=== PATIENT | male | born 1965 | race Caucasian/White ===

== ENCOUNTER 2021-06-02 00:48 | Emergency (ER) | payer OTHER ==
[~2021-06-02] VITALS: Ht 180.3 cm; Wt 103.7 kg
[2021-06-02] MEDS ORDERED: IV NORMAL SALINE 1000ML BAG 1,000 ML IV ONE (01:00)
--- NOTE | 2021-06-02 01:04 | PHYS DOC ---
General Adult EDM: Chief Complaint: MECHANICAL FALL HPI: HPI: Patient is a 55 year-old male presents via EMS for evaluation after a fall. Patient admits to heavy drinking tonight. Patient states he smokes cigarettes for the first time in several weeks. Patient states while he was smoking he became dizzy and had an apparent syncopal episode. Patient had no forward and hit his head on the ground. Patient has abrasion forehead bridge of his nose and right shoulder. Patient also only complains of right head pain. He is alert and oriented x4. He denies any chest pain or shortness of breath. Patient states his tetanus is up-to-date. Review of Systems: Review of Systems: Review of systems: Constitutional symptoms- No fever, no chills. Eyes- No Discharge, No Visual Loss Respiratory symptoms- No shortness of breath, No wheezing, No Dyspnea on Exertion Cardiovascular Systems; No chest pain, No Palpitations, No syncope Gastrointestinal symptoms: NO abdominal pain, no nausea, no vomiting or diarrhea. Genitourinary symptoms: No dysuria. Musculoskeletal symptoms: No back pain No extremity pain. NEUROLOGICAL Symptoms: No headache, no generalized weakness; No focal Weakness Skin: No rash. Heart Score: C/O Chest Pain: N/A Risk Factors: Risk Factors: DM, Current or recent (<one month) smoker, HTN, HLP, family history of CAD, obesity. Risk Scores: Score 0 - 3: 2.5% MACE over next 6 weeks - Discharge Home Score 4 - 6: 20.3% MACE over next 6 weeks - Admit for Clinical Observation Score 7 - 10: 72.7% MACE over next 6 weeks - Early Invasive Strategies Current Medications: Current Medications Medications (Trade) Dose Ordered Sig/Alex Start Time Stop Time Status Last Admin Dose Admin Sodium Chloride 1,000 ml @ 1,000 mls/hr 1X ONCE 06/02/21 01:00 06/02/21 01:59 Allergies: Allergies: Allergies Coded Allergies Type Severity Reaction Last Updated Verified No Known Drug Allergies 06/02/21 No Physical Exam: PE: General: alert, no acute distress. Skin: Duration forehead abrasion bridge of nose abrasion above upper lip abrasion right shoulder HENT: bilateral external ears normal, oropharynx moist, nose normal. Head:: Normocephalic, atraumatic. Neck: Trachea midline. Eyes: EOMI, Normal conjunctiva, No drainage CARDIOVASCULAR: Regular rate and rhythm RESPIRATORY: No respiratory distress Back: Full range of motion. MUSCULOSKELETAL: Full range of motion of bilateral upper and lower extremities. GASTROINTESTINAL: Abdomen soft without rebound or guarding. NEUROLOGICAL: Alert and noted to person, place and time. No neurological deficits observed Psychiatric: Cooperative. Normal judgment EKG: EKG: [] Performed at 0136 Rate 72 Normal sinus rhythm No ST elevation No ST depression No acute PA Radiology/Procedures: Radiology/Procedures: [] Impression: IMPRESSION: CT HEAD/FACIAL BONES: 1.No evidence of acute intracranial abnormality. 2.Forehead contusion/hematoma, right greater than left. No evidence of underlying calvarial fracture. 3. No evidence of facial bone fracture CT CERVICAL SPINE: No evidence of fracture or traumatic spondylolisthesis of the cervical spine. Course & Med Decision Making: Course & Med Decision Making Pertinent Labs and Imaging studies reviewed. (See chart for details) [] Patient was evaluated for chief complaint. Work-up consisted of laboratory analysis and radiologic imaging. CT imaging showed no acute intracranial abnormalities or acute fractures. Patient was treated with IV fluids. He was observed to sobriety. Patient ambulated with a steady gait. Patient was discharged home. [place] Disclaimer: Jayson Disclaimer: This electronic medical record was generated, in whole or in part, using a voice recognition dictation system. Departure Departure Impression: Primary Impression: Facial abrasion Additional Impressions: Alcohol intoxication Facial contusion Disposition: HOME / SELF CARE / HOMELESS Condition: STABLE CHARLINE VERGARA I Jun 02, 2021 01:04
--- NOTE | 2021-06-02 01:30 | RAD ---
EXAMINATION: CT head, facial bones and cervical spine without IV contrast INDICATION:55 years, Male, facial injury status post fall today. Neck pain COMPARISON: None TECHNIQUE: Spiral acquisition of contiguous images from the skull base to the vertex were obtained. C T of the cervical spine was obtained using contiguous spiral imaging from the skull base to the upper thoracic level. Sagittal and coronal 2D reformatted series were provided by the technologist. Soft t issue and bone window algorithms were reviewed. Exposure: One or more of the following individualized dose reduction techniques were utilized for thi s examination: 1. Automated exposure control 2. Adjustment of the mA and/or kV according to patient size 3. Use of iterative reconstruction technique. FINDINGS: CT HEAD: The ventricles are normal in size. Neither mass, midline shift, intracranial hemorrhage, acute/subacu te ischemic changes, nor extraaxial fluid collections are seen. The brain parenchyma is normal in cony earance. The orbital contents appear within normal limits. Forehead contusion/hematoma, right greater than left. No evidence of under lying calvarial fracture. FACIAL BONES: No evidence of fracture of the facial bones. No fluid in the bilateral maxillary, ethmoid, frontal, o r sphenoid sinuses. The nasal septum is midline. The mastoid air cells are clear. The osteo-meatal co mplexes appear patent bilaterally. CT CERVICAL SPINE: Anatomic alignment of the cervical spine is maintained. Neither fracture, subluxation, nor traumatic spondylolisthesis is seen. The vertebral body heights are preserved. Mild to severe multilevel degene rative changes throughout the cervical spine. There is no evidence of a large intraspinal hematoma. T he prevertebral and paravertebral soft tissues are within normal limits. Visualized lung apices are clear. IMPRESSION: CT HEAD/FACIAL BONES: 1.No evidence of acute intracranial abnormality. 2.Forehead contusion/hematoma, right greater than left. No evidence of underlying calvarial fracture. 3. No evidence of facial bone fracture CT CERVICAL SPINE: No evidence of fracture or traumatic spondylolisthesis of the cervical spine. Electronically signed by: Sekou Dumont DO (06/02/2021 1:27 AM) [facility]
[2021-06-02 01:32] LABS: BASO % 1 % (0-3); EOS # 0.2 x10^3/uL (0.0-0.7); EOS % 3 % (0-3); HEMOGLOBIN 14.9 g/dL (13.0-17.5); LYMPH # 1.8 x10^3/uL (1.0-4.8); LYMPH % 28 % (24-48); MEAN CORPUSCULAR HEMOGLOBIN 35 pg (25-35); MEAN CORPUSCULAR HGB CONC 35 g/dL (31-37); MEAN CORPUSCULAR VOLUME 99 fL (79-100); MONO # 0.8 x10^3/uL (0.0-1.1); MONO % 13 % (0-9); NEUT # 3.6 x10^3/uL (1.8-7.7); NEUT % 55 % (31-73); PLATELET COUNT 234 x10^3/uL (140-400); RED BLOOD COUNT 4.25 x10^6/uL (4.30-5.70); RED CELL DISTRIBUTION WIDTH 12.7 % (11.5-14.5); WHITE BLOOD COUNT 6.5 x10^3/uL (4.0-11.0)
[2021-06-02 01:54] LABS: CALCIUM 8.3 mg/dL (8.5-10.1); CREATININE 0.8 mg/dL (0.7-1.3); GFR 99.6; POTASSIUM 3.8 mmol/L (3.5-5.1)
[2021-06-02 02:00] LABS: ALBUMIN 3.5 g/dL (3.4-5.0); TOTAL BILIRUBIN 0.2 mg/dL (0.2-1.0); TOTAL PROTEIN 6.9 g/dL (6.4-8.2)
[2021-06-02 02:17] VITALS: BP 106/58
--- NOTE | 2021-06-02 06:07 | EKG ---
[facility] [address] [place] [address] Test Date: 2021-06-02 Test Time: 01:36:28 Pat Name: JAYDEN GAMBLE Department: Room: Gender: M Cancer Spec: : 1965 Requested By: CHARLINE VERGARA Order Number: [id number] Reading MD: Measurements Intervals [place] Rate: 72 P: 62 IN: 138 QRS: 34 QRSD: 80 T: 30 QT: 404 QTc: 444 Interpretive Statements SINUS RHYTHM NO SPECIFIC ECG ABNORMALITIES RI6.01 No previous ECG available for comparison
== END 2021-06-02 03:00 | disposition home or self-care (01) ==
LOC: ER 00:48
DX: S00.83XA Contusion of other part of head, initial encounter (principal); S00.31XA Abrasion of nose, initial encounter; R51.9 Headache, unspecified; M25.511 Pain in right shoulder; F17.210 Nicotine dependence, cigarettes, uncomplicated; W18.39XA Other fall on same level, initial encounter; Y93.89 Activity, other specified; Y92.89 Other specified places as the place of occurrence of the external cause; Y99.8 Other external cause status
CPT/HCPCS: 36415; 70450; 70486; 72125; 80053; 84484; 85025; 93005; 96360; 99284; G0480; J7030